=== PATIENT | male | born 1995 | race African-American/Black ===

== ENCOUNTER 2019-04-29 23:22 | Emergency (ER) | payer BC ==
--- NOTE | 2019-04-29 23:50 | NUR ---
CALLED 3 TIMES NO ANSWER. PT LEFT W/O BEING TRIAGED
== END 2019-04-29 23:52 | disposition left against medical advice (07) ==
LOC: ER 23:26
DX: Z53.21 Procedure and treatment not carried out due to patient leaving prior to being seen by health care provider (principal)

== ENCOUNTER 2019-04-30 00:40 | Emergency (ER) | payer BC ==
[~2019-04-30] VITALS: Ht 172.7 cm; Wt 70.3 kg
--- NOTE | 2019-04-30 01:40 | NUR ---
DR JASSO INTO EVAL PATIENT
[2019-04-30] MEDS ORDERED: IBUPROFEN 600 MG TABLET PO ONE (02:00)
[2019-04-30] MEDS ORDERED: IBUPROFEN 600 MG TABLET ONE (02:16)
--- NOTE | 2019-04-30 04:14 | NUR ---
1st call to [facility] Kate said that she will have it read.
[2019-04-30 04:32] VITALS: BP 128/74
--- NOTE | 2019-04-30 04:32 | NUR ---
Patient discharged to home in stable conditon. Written and verbal after care instructions given. Patient verbalizes understanding of instructions. WALKED OUT OF ER WITH NO DISTRESS NOTED
== END 2019-04-30 04:33 | disposition home or self-care (01) ==
LOC: ER 00:45
DX: M54.5 Low back pain (principal); V43.62XA Car passenger injured in collision with other type car in traffic accident, initial encounter; Y93.89 Activity, other specified; Y92.410 Unspecified street and highway as the place of occurrence of the external cause; Y99.8 Other external cause status
CPT/HCPCS: 72100; A4663